=== PATIENT | female | born 1960 | race Caucasian/White ===

== ENCOUNTER 2023-02-12 10:09 | Emergency (ER) | payer OTHER, SELFPAY ==
--- NOTE | ~2023-02-12 | XR_ITS ---
Clinical Indication: Palpitations PA and lateral views of the chest: Comparison: None Findings: The lungs are clear, without evidence of focal consolidation or pleural effusion. Cardiome diastinal silhouette is within normal limits. Bones and soft tissues are unremarkable. Impression: Normal chest. Reviewed, dictated and finalized at location . Impression: Normal chest.
[2023-02-12 10:17] VITALS: BP 157/89; PULSE 75; RESP 16; TEMP 36.4; O2SAT 100
[2023-02-12 10:21] VITALS: PULSE 77
--- NOTE | 2023-02-12 10:23 | ECG_ITS ---
Measurements Intervals [place] Rate: 76 P: 79 MS: 173 QRS: 61 QRSD: 94 T: 58 QT: 399 QTc: 449 Interpretive Statements SINUS RHYTHM DELAYED PRECORDIAL R/S TRANSITION BORDERLINE ECG NO PREVIOUS ECG AVAILABLE FOR COMPARISON Electronically Signed On 02-12-2023 11:31:31 CDT by Arnel New D.O.
[2023-02-12 11:02] VITALS: BP 130/72; PULSE 66; RESP 18; O2SAT 98
[2023-02-12 11:08] LABS: Basophils Percent Auto 0.5 % (0.2-1.2); Eosinophils Percent Auto 0.5 % (0-4.4); Hematocrit 40.5 % (37.0-47.0); Hemoglobin 13.4 g/dL (12.0-15.0); Immature Granulocyte Absolute 0.03 K/mm3 (0.00-0.031); Immature Granulocyte Percent A 0.7 % (0-0.5); Lymphocytes Absolute Auto 0.96 K/mm3 (0.9-3.2); Lymphocytes Percent Auto 22.2 % (18.3-44.2); Mean Corpuscular HGB Conc 33.1 g/dl (32-36); Mean Corpuscular Hemoglobin 33.8 pg (26-34); Mean Platelet Volume 9.5 fl (7.4-10.4); Monocytes Absolute Auto 0.3 K/mm3 (0.1-0.6); Monocytes Percent Auto 5.8 % (2.6-8.5); Neutrophils Percent Auto 70.3 % (45.5-73.1); Platelet Count Result 180 k/mm3 (150-375); Red Blood Count 3.97 M/mm3 (4.2-5.4); Red Cell Distribution Width 13.4 % (11.5-14.5); White Blood Count 4.3 K/mm3 (4.5-10.0)
[2023-02-12 11:18] LABS: Alanine Aminotransferase 39 U/L (6-35); Albumin Level 4.4 g/dL (3.5-5.1); Alkaline Phosphatase 56 U/L (38-126); Anion Gap 1 mmol/L (8-16); Aspartate Amino Transferase 41 U/L (14-36); Bilirubin,Total 0.5 mg/dL (0.2-1.3); Blood Urea Nitrogen 39 mg/dL (7-17); Calcium 9.2 mg/dL (8.4-10.2); Carbon Dioxide 33 mmol/L (22-30); Chloride 97 mmol/L (98-107); Estimated CRCL calculation 59 ml/min; Estimated Glomerular Filt Rate > 60; Glucose 146 mg/dL (65-110); Magnesium 1.9 mg/dL (1.6-2.3); Potassium 4.5 mmol/L (3.4-5.0); Sodium 131 mmol/L (137-145)
[2023-02-12 12:12] VITALS: BP 126/71; PULSE 56; RESP 17; O2SAT 99
--- NOTE | 2023-02-12 12:32 | ED.ARRPALP ---
HPI - Arrhythmia/Palpitations General Chief Complaint: Arrhythmia/Palpitations Stated Complaint: palp Time Seen by Provider: 02/12/23 10:32 History of Present Illness HPI narrative: This is a 63-year-old female with past history of borderline diabetes and anxiety, presenting to the emergency department complaining of palpitations today. Patient states she was standing, when she felt a sudden onset of quick heart rate and mild lightheadedness. She felt her pulse and thought it was irregular, became concerned and presented for evaluation. She denies loss of conscious, chest pain or shortness of breath. Related Data Allergies Allergy/AdvReac Type Severity Reaction Status Date / Time nitrofurantoin Allergy Unknown Verified 02/12/23 10:22 [From Macrodantin] Review of Systems Review of Systems: CONSTITUTIONAL: Denies fever, chills, or sweats. CARDIOVASCULAR: Palpitations denies chest pain, or edema. RESPIRATORY: Denies cough or dyspnea. GASTROINTESTINAL: Denies abdominal pain, nausea, vomiting, or diarrhea. GENITOURINARY: Denies dysuria or hematuria. SKIN: Denies rash or itching. MUSCULOSKELETAL: Denies back pain, joint pain, or myalgia. NEUROLOGIC: Denies headache, numbness, dizziness, or weakness. PSYCHIATRIC: Denies anxiety or depression. PMFSH Past Medical History Medical History (Updated 02/13/23 @ 20:02 by Charlie Bird MD) No significant past medical history Surgical History Surgical History (Updated 02/13/23 @ 20:02 by Charlie Bird MD) No significant past surgical history Social History Social History (Updated 02/13/23 @ 20:02 by Charlie Bird MD) Smoking status: Never smoker Alcohol intake: never Substance use: never Exam Narrative: GENERAL: Well-developed, well-nourished, and in no acute distress. HEAD: Normocephalic, atraumatic. EYES: PERRLA and EOMI. ENT: Nares clear, no rhinorrhea or epistaxis. Mucous membranes moist. Oropharynx without tonsillar hypertrophy exudate or other lesions. NECK: Supple. No adenopathy or masses. No carotid bruits or JVD CHEST: Clear to auscultation. No respiratory distress. No wheezes rales or rhonchi HEART: Regular rate and rhythm. No murmur heard. Normal peripheral pulses. ABDOMEN: Soft, nontender, nondistended, normal active bowel sounds. EXTREMITIES: Normal range of motion. No edema. SKIN: Warm, dry, no rash. NEURO: No focal deficits. Alert and oriented x3. PSYCH: Normal mood and affect. Course Course Emergency Course: 12:33 - Chemistries demonstrated mild hyponatremia at 131. BUN elevated at 39. I suspect this is related to the patient's carnivore diet. Chemistries are otherwise unremarkable. CBC demonstrates mildly decreased white blood cell count of 4.3. TSH within normal limits. Chest x-ray unremarkable. 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 EKG unremarkable. Will discharge with primary care follow-up. Discussed return emergency precautions including signs/symptoms of ACS. The patient voiced understanding and is comfortable with the plan. All questions answered to her satisfaction. Vital Signs Vital signs: Vital Signs Temperature 97.6 F 02/12/23 10:17 Pulse Rate 75 02/12/23 10:17 Respiratory Rate 16 02/12/23 10:17 Blood Pressure 157/89 H 02/12/23 10:17 Pulse Oximetry 100 02/12/23 10:17 Oxygen Delivery Room Air 02/12/23 10:17 Temperature 97.6 F 02/12/23 10:17 Pulse Rate 63 02/12/23 12:46 Respiratory Rate 16 02/12/23 12:46 Blood Pressure 137/69 02/12/23 12:46 Pulse Oximetry 98 02/12/23 12:46 Oxygen Delivery Room Air 02/12/23 10:17 MDM - Arrhythmia/Palpitations MDM Narrative Medical decision making narrative: Plan: Labs, imaging, EKG, reassess Differential Diagnosis Differential diagnosis: Likely palpitations, sinus tachycardia, artial fibrillation, ventricular tachycardia, WPW and other (Metabolic abnormality, other
[2023-02-12 12:46] VITALS: BP 137/69; PULSE 63; RESP 16; O2SAT 98
== END 2023-02-12 12:46 | disposition home or self-care (01) ==
PROVIDERS: Emergency Provider Preventive Medicine Aerospace Medicine; PCP Family Medicine
DX: R00.2 Palpitations (principal)
CPT/HCPCS: 36415; 71046; 80053; 83735; 84443; 85025; 93005; 99283